=== PATIENT | female | born 1995 | race Caucasian/White ===

== ENCOUNTER 2022-08-25 13:30 | Inpatient (IN) | payer MEDICAID, SELFPAY ==
[2022-08-25 13:31] VITALS: BP 108/67; PULSE 97; RESP 16; TEMP 36.4; O2SAT 96; BMI 27.7
--- NOTE | 2022-08-25 14:00 | EX.ED.SAOD ---
HPI History of Present Illness Chief Complaint: Substance Abuse Informant: patient and family Onset/Context/Timing Onset: - (Substance abuse for years. Prior detox 1 to 2 years ago.) Context: Gradual Onset Timing: Continuous Current Severity: Mild Maximum Severity: Mild Narrative Narrative: 27-year-old female history of fentanyl, cocaine and Xanax abuse. Denies any IV drug abuse. She snorts the medication. Patient is here because in order to get an outpatient detox program she has to do an inpatient program first. Family is with her. She denies complaints. Last use within the last 12 hours. Prior similar symptoms: Yes Recent Illness/Hospitalization: No PFSH PFSH Allergy/AdvReac Type Severity Reaction Status Date / Time No Known Allergies Allergy Verified 08/25/22 13:31 Surgical History no surgical history no surgical history Social History Smoking Status: Current every day smoker tobacco type: cigarettes ROS ROS ED ROS Narrative Patient denies recent illness. Review of Systems ROS Unobtainable: Denies due to encephalopathy Constitutional Constitutional ED: Denies chills or fever(s) Eyes Eyes: Denies blurry vision ENT ENT ED: Denies ear pain Cardiovascular Cardiovascular: Denies chest pain Respiratory/Chest Respiratory/Chest: Denies cough or dyspnea Gastrointestinal Gastrointestinal: Denies abdominal pain Genitourinary Genitourinary ED: Denies dysuria Musculoskeletal Musculoskeletal: Denies arthralgias Integumentary Denies abscess Neurologic Neurologic: Denies headache(s) Psychiatric Psychiatric: Denies anxiety Endocrine Endocrinology: Denies cold intolerance Hematologic/Lymphatic Hematologic/Lymphatic: Denies easy bleeding Allergic/Immunologic Allergic/Immunologic ED: Denies mouth swelling EXAM Physical Exam Narrative Exam Narrative: 27-year-old female no acute distress. Tearful and emotionally upset. Family present in room. H EENT exam unremarkable. Neck nontender. No lymphadenopathy. Lungs clear to auscultation bilaterally. Heart regular rhythm rate about 95 no murmur. Chest wall nontender. Abdomen soft nontender. Back nontender. Moving all 4 extremities. Nontender, no edema, no cellulitis. No track jameson. Neurologically she is awake and alert with no focal motor deficits. Const Vital Signs: 08/25/22 13:31 Temperature 97.6 F L Temperature Source Temporal Pulse Rate 97 Respiratory Rate 16 Blood Pressure 108/67 Blood Pressure Mean 80 Pulse Ox 96 Oxygen Delivery Method Room Air Positive well nourished and well developed; Negative for cachectic, contractures or unkempt General Appearance ED: well developed and NAD; Negative for unkempt, cachectic, contractures or pallor Nutritional Appearance: Negative for cachectic HEENT Reports moist mucous membranes; Denies dry mucous membranes atraumatic; Negative for trauma or tenderness Mouth ED: No dry mucous membranes Mouth: No dry mucous membranes Eyes PERRL and EOMs intact bilaterally General Eye ED: Negative for pale conjunctiva or scleral icterus Neck no lymphadenopathy, supple and no JVD Thyroid: Negative for tender Lymph Lymphatic: no lymphadenopathy noted; Negative for lymphadenopathy Chest Wall inspection of chest normal and palpation of chest normal Resp normal respiratory effort and clear to auscultation bilaterally Effort and Inspection: Negative for retractions Auscultation: Negative for rales, rhonchi or wheezes Cardio regular rate, regular rhythm, S1 normal heart sound, S2 normal heart sound and no murmurs Rate: Negative for bradycardia Rhythm: Negative for abnormal rhythm Bruits: Negative for other GI soft to palpation, non-tender, non-distended and no masses Inspection: Negative for abdominal distention Palpation: Negative for tender, guarding or rigid Bladder / Kidney Exam: No other Back/Spine no CVA tenderness General Back: Negative for CVA tenderness Cervical Spine: Negative for cervical spine tenderness Thoracic Spine / Upper Back: Negative for thoracic spinal tenderness Lumbar Spine / Lower Back: Negative for lumbar spinal tenderness Coccyx: Negative for swelling Extremity General Extremety ED: Negative for edema or tenderness General Extremity: Negative for edema Neuro oriented x3 and CN's II-XII intact bilaterally Sensorium / Orientation: alert, oriented to person, oriented to place and oriented to time; Negative for confused, lethargic or stuporous Speech: speech normal Motor Exam: strength 5/5 throughout Psych mental status grossly normal and thought process normal Psych Narrative: Tearful and emotionally upset. Appearance: Negative for unkempt Attitude: No belligerent, No agitated, No aggressive and No hostile Mood & Affect: depressed and tearful Skin General Skin Exam: Negative for jaundice or pallor Lesions: no lesions Rashes: no rashes Trauma: Negative for abrasion or laceration MDM MDM MDM Narrative Medical decision making narrative: [id number] female detox for known fentanyl, cocaine and polysubstance abuse. Exam benign. Screening labs being placed. Hospitalist has been contacted and is down to evaluate the patient for admission. Lab Data Attestation: I reviewed the patient's lab results. Lab results narrative: CBC normal. White count 9. H&H 13.9 and 39. Platelets 228. Alcohol less than 3. Negative. Labs: Laboratory Results - last 24 hr 08/25/22 08/25/22 08/25/22 13:55 13:55 13:55 WBC 9.0 RBC 4.52 Hgb 13.9 Hct 39.9 MCV 88.3 MCH 30.8 MCHC 34.8 RDW Std Deviation 41.2 RDW Coeff of Mynor 12.7 Plt Count 228 MPV 11.2 Immature Gran % (Auto) 0.200 Neut % (Auto) 61.4 Lymph % (Auto) 27.5 [place] % (Auto) 6.5 Eos % (Auto) 4.1 Baso % (Auto) 0.3 Absolute Neuts (auto) 5.5 Absolute Lymphs (auto) 2.49 Nucleated RBC % 0 PT 13.1 INR 1.0 Ethyl Alcohol < 3.0 Discharge Plan Dx/Rx/DC Orders Clinical Impression: Polysubstance abuse, Desire for detoxification Disposition Disposition: Acute Care Hospital [facility]
[2022-08-25 14:02] LABS: Absolute Lymphocyte Count 2.49 X10^3/uL (0.83-4.51); Absolute Neutrophil Count 5.5 X10^3/uL (2.0-7.7); Basophil# 0.03 X10^3/uL; Basophil% 0.3 % (0-1); Eosinophil# 0.37 X10^3/uL; Eosinophils% 4.1 % (0-5); Hematocrit 39.9 % (37-47); Hemoglobin 13.9 g/dL (12.0-15.0); Lymphocyte # 2.49 X10^3/ul (0.83-4.51); Lymphocyte % 27.5 % (19-41); Mean Corp Hgb Conc 34.8 g/dL (32-36); Mean Corpuscular Hgb 30.8 pg (27.0-32.0); Mean Corpuscular Volume 88.3 fL (81-99); Mean Platelet Vol. 11.2 fl (6.2-12.0); Monocyte# 0.59 X10^3/uL; Monocyte% 6.5 % (0-10); NRBC Flagged by Analyzer 0 % (0-5); Neutrophil # 5.54 X10^3/uL (2.7-7.7); Neutrophil % 61.4 % (47-70); Platelet Count 228 K/mm3 (150-450); RBC Distribution Width CV 12.7 % (11.6-14.6); RBC Distribution Width SD 41.2 fl (35.1-43.9); Red Blood Count 4.52 M/mm3 (4.2-5.4)
[2022-08-25 14:14] LABS: Prothrombin Time (Protime)PT. 13.1 SECONDS (11.7-14.9)
[2022-08-25 14:18] LABS: Alcohol, Blood (Medical)-Serum < 3.0 mg/dL
[2022-08-25 14:21] VITALS: BP 128/73; PULSE 78; RESP 14; TEMP 36.6; O2SAT 100
--- NOTE | 2022-08-25 14:21 | CM.ED ---
Social Work SW introduced self and role to patient. Pt's mother and sister present at bedside. Pt presents as not wanting detox but then reported she needs to be here. SW provided support and encouragement to patient. SW called Ramp coordinator Norma to notify her of patient being admitted for detox. Doris Be [employer], AVIATION ENGINEER
[2022-08-25 14:23] LABS: ALB/GLOB Ratio 1.2 RATIO (0.9-2.4); AST(SGOT) 12 U/L (15-37); Alanine Aminotransfer ALT/SGPT 18 U/L (13-56); Albumin, Serum 3.9 g/dL (3.2-5.0); Alkaline Phosphatase 77 U/L (45-117); Anion Gap 5 (5-15); BUN 4 mg/dL (7-18); BUN/Creat Ratio 5.6 RATIO (10-20); Calcium,Total 9.4 mg/dL (8.5-10.1); Chloride 109 mmol/L (98-107); Creatinine, Serum 0.72 mg/dL (0.55-1.02); EST Glomerular Filtration Rate 105 mL/min (>60); Est Glom Filt Rate - Afr Amer 126 mL/min (>60); Estimated Creatinine Clearance 110.84 ml/min; Globulin 3.3 g/dL (2.2-4.2); Glucose 94 mg/dL (74-106); Potassium 3.8 mmol/L (3.5-5.1); Protein, Total 7.2 g/dL (6.4-8.2); Sodium Level 142 mmol/L (136-145)
--- NOTE | 2022-08-25 15:00 | PCM.HP.STD ---
[facility] - General General Date of Admission: 08/25/22 Date of Service: 08/25/22 Chief Complaint: Acute opioid withdrawal symptoms for 1 to 2 days. HPI Narrative BERYL PETTY, is a 27 F with history of chronic opioid use mainly fentanyl came to ED for medical stabilization. She states he has been using fentanyl by snorting, denies IV use and had a few relapses in the past. She does not know exact quantity but he states she gets fentanyl worth of $20-$40 and uses for few days and then off for 1 or 2 days. Her last dose was about 2 days ago and she was having withdrawal symptoms therefore she got Ativan half milligram and Xanax 1 mg from her friend and she took in the morning. She denies chronic benzodiazepine use and dependence. She denies crack cocaine, methamphetamine, ecstasy, bath salts or other substance use. She denies drinking alcohol. She has history of 2-3 relapses in the past. Currently she has symptoms of anxiety, restlessness, itching but denies diarrhea, palpitation, muscle aches pain. Past medical history: Denies hypertension diabetes. She is not . Social history: Patient is smokes cigarette about pack per day. Opioid use and dependence. Rest as mentioned above Family history: Her mother accompanied the patient. She does not have substance use history. PFSH Allergy/AdvReac Type Severity Reaction Status Date / Time No Known Allergies Allergy Verified 08/25/22 13:31 Surgical History no surgical history Social History Smoking Status: Current every day smoker tobacco type: cigarettes ROS ROS Narrative Constitutional: Reports fatigue and weakness. No fever. HEENT: Reports systems reviewed and no addt'l complaints, except as documented Respiratory/Chest: No acute shortness of breath or respiratory distress or wheezing. CVS: Denies cardiac history or arrhythmia. Gastrointestinal: Denies coffee ground emesis, hematemesis or vomiting Genitourinary: Denies burning urination or new urinary tract symptoms Musculoskeletal: Denies acute joint pain or limited range of motion. No acute injury Neurologic: Denies seizure-like symptoms. No acute strokelike symptoms. Psychiatry: No hallucination delusion or illusion. No nightmares. skin: No ulcer. No rash Endocrinology: Reports systems reviewed and no addt'l complaints, except as documented Hematologic/Lymphatic: Reports systems reviewed and no addt'l complaints, except as documented Rest 14 ROS are negative except as mentioned in HPI Vital Signs Vital Signs Vital Signs: 08/25/22 13:31 08/25/22 14:21 Temperature 97.6 F L 97.8 F Temperature Source Temporal Temporal Pulse Rate 97 78 Respiratory Rate 16 14 Blood Pressure 108/67 128/73 H Blood Pressure Mean 80 91 Pulse Ox 96 100 Oxygen Delivery Method Room Air Room Air Weight Weight: 172 lb Body Mass Index (BMI) 27.7 Physical Exam Narrative General: Alert, Oriented x3, Cooperative HEENT: Atraumatic, PERRLA, EOMI, Normocephalic Oral: Oral mucosa dry. No Gingival or Mucosal Lesions/ Ulcerations/inflammation or redness Neck: Supple, No JVD, Negative Carotid Bruits Lungs: Air entry diminished in bilateral lung bases. No crepitation/rhonchi Cardiovascular: Regular rate, Regular Rhythm, Normal S1, Normal S2, No murmurs Abdomen: Bowel Sounds Present, Soft, Non Tender, Non-Distended : No renal angle tenderness. No suprapubic tenderness. Extremities: No edema, Capillary Refill Less than 3 Seconds Skin: No rashes, No breakdown Musculoskeletal: No Tenderness to Palpation of Joints or Extremities. Muscle strength 5/5 at major joints. ROM intact. Neurological: Cranial nerves II-XII grossly intact, DTR 2+/4 and Symmetrical, Neuro grossly intact Psych/Mental Status: Flat affect. Anxious, restless. Results Lab / Micro Data Result Diagrams: 08/25/22 13:55 08/25/22 13:55 Labs: Laboratory Results - last 24 hr 08/25/22 13:55: WBC 9.0, RBC 4.52, Hgb 13.9, Hct 39.9, MCV 88.3, MCH 30.8, MCHC 34.8, RDW Std Deviation 41.2, RDW Coeff of Mynor 12.7, Plt Count 228, MPV 11.2, Immature Gran % (Auto) 0.200, Neut % (Auto) 61.4, Lymph % (Auto) 27.5, [place] % (Auto) 6.5, Eos % (Auto) 4.1, Baso % (Auto) 0.3, Absolute Neuts (auto) 5.5, Absolute Lymphs (auto) 2.49, Nucleated RBC % 0 08/25/22 13:55: Sodium 142, Potassium 3.8, Chloride 109 H, Carbon Dioxide 28.0, Anion Gap 5, BUN 4 L, Creatinine 0.72, Estim Creat Clear Calc 110.84, Est GFR (MDRD) Af Amer 126, Est GFR (MDRD) Non-Af 105, BUN/Creatinine Ratio 5.6 L, Glucose 94, Calcium 9.4, Total Bilirubin 1.00, AST 12 L, ALT 18, Alkaline Phosphatase 77, Total Protein 7.2, Albumin 3.9, Globulin 3.3, Albumin/Globulin Ratio 1.2 08/25/22 13:55: Ethyl Alcohol < 3.0 08/25/22 13:55: PT 13.1, INR 1.0 Assessment & Plan Assessment/Plan (1) Acute opioid withdrawal: PLAN: Plan 1. Acute opioid withdrawal syndrome with history of opioid use disorder, dependence and multiple relapses: [facility] The patient is started on buprenorphine along with other adjunctive medications as needed for medical stabilization as per order set of opioid withdrawal syndrome.Patient also on trazodone, hydroxyzine, gabapentin as needed ordered. watershed program manager consult. Patient denies IV use. Advised quitting opioid use. 2. Intermittent use of benzodiazepines: Patient denies chronic use and dependence: She had 1 dose of half milligram Ativan and 1 mg Xanax today. 3. Chronic smoking/nicotine dependence: Nicotine patch ordered. Advised and counseling done to quit. 4. VTE prophylaxis, low risk: Early ambulation encouraged. No pharmacological prophylaxis is recommended. Living will/advanced directive/end of life care: Patient does not have living will or advanced directive. After discussion of benefits/risks procedures involved with full code, DNR CC arrest and DNR CC, the patient and the family opted for full code. Patient does want artificial life support including intubation, tube feed, ventilator and/chest compression, central venous catheter, vasopressor and DC shock if needed Charges/Coding Visit Charges Inpatient E&M: 07060 Init Hosp L3
[2022-08-25 15:21] VITALS: BMI 27.3
[2022-08-25 15:45] VITALS: BP 125/66; PULSE 88; RESP 14; TEMP 36.6; O2SAT 95
[2022-08-25] MEDS: Lactated Ringers 1,000 ML 125 ML IV (16:21)
[2022-08-25] MEDS: 0.9% Saline Lock 10 ML Syringe IV (16:23)
[2022-08-25 16:24] LABS: Internal QC Validated? YES +Cl - CLEAR BKGD; Pregnancy, Serum, hCG Quali. NEGATIVE Negative
[2022-08-25] MEDS: Pantoprazole Sodium 40 MG Tablet PO (16:25)
[2022-08-25] MEDS: hydrOXYzine PAM 25 MG Capsule 50 MG PO (16:55)
[2022-08-25 18:11] LABS: Amphetamine Urine VISTA NEGATIVE (<1000 ng/mL); Barbiturate Urine VISTA NEGATIVE (< 200 ng/mL); Benzodiazepine Urine VISTA POSITIVE (< 200 ng/mL); Cocaine Urine VISTA NEGATIVE (< 300 ng/mL); Ecstacy Urine VISTA NEGATIVE (< 500 ng/mL); Methadone Urine VISTA NEGATIVE (< 300 ng/mL); PCP Urine VISTA NEGATIVE (< 25 ng/mL); THC Urine VISTA POSITIVE (< 50 ng/mL); Vista UDS pH Range 6
[2022-08-25 21:14] VITALS: BP 109/66; PULSE 60; RESP 18; TEMP 36.3; O2SAT 100
[2022-08-25 21:16] VITALS: RESP 18
[2022-08-26 01:51] VITALS: BP 107/51; PULSE 89; RESP 18; TEMP 36.6; O2SAT 97
[2022-08-26] MEDS: hydrOXYzine PAM 25 MG Capsule 50 MG PO ×3 (02:05→23:51)
[2022-08-26] MEDS: traZODone 100 MG Tablet PO ×2 (02:06→23:51)
[2022-08-26] MEDS: cloNIDine HCl 0.1 MG Tablet PO (02:06)
[2022-08-26 05:58] VITALS: BP 101/54; PULSE 54; RESP 18; TEMP 36.3; O2SAT 97
[2022-08-26 08:08] VITALS: PULSE 80
[2022-08-26 08:12] VITALS: BP 109/69; PULSE 75; RESP 16; TEMP 36.8; O2SAT 98
[2022-08-26] MEDS: Pantoprazole Sodium 40 MG Tablet PO (08:18)
[2022-08-26 11:17] VITALS: BP 120/57; PULSE 72; RESP 16; TEMP 37.1; O2SAT 96
--- NOTE | 2022-08-26 13:30 | CHAPLAIN ---
Type of Pastoral Visit ___ Initial Visit ___ Follow-up Visit ___ On-call Visit ___ General Patient Visit ___ Spiritual Assessment ___ Family Conference ___ Bereavement ___ Rapid Response ___ Code Blue ___ Other (describe below) Pastoral Care Referral From ___ Patient ___ Family ___ Nurse ___ Physician ___ Publishing Manager ___ Tumbler Tender ___ Other (describe below) Sacrament/Intervention ___ Active listening ___ Anointing ___ Cheondoism ___ Bereavement ___ Communion ___ Sia exploration ___ ___ Life review ___ Prayer ___ Reconciliation ___ Sacrament of Sick ___ Supportive presence ___ Wedding ___ Other (describe below) Pastoral Comments patient was sleeping
--- NOTE | 2022-08-26 13:44 | PN.HOSP_ITS ---
Reason for Visit Reason for Visit: Diagnoses Opioid use, unspecified with withdrawal (08/25/22) Subjective Subjective Resting in bed, reports she is mostly feeling sleepy, not particularly shaky, slightly nauseous was able to eat some food Objective Data Objective Data Vital Signs: Vital Signs Temp Pulse Resp BP Pulse Ox O2 Del Method 98.8 F 72 16 120/57 L 96 Room Air 08/26/22 11:17 08/26/22 11:17 08/26/22 11:17 08/26/22 11:17 08/26/22 11:17 08/26/22 11:17 Oxygen Delivery Method Room Air Weight: 78.154 kg Body Mass Index (BMI) 27.3 Intake & Output: Intake and Output for Last 24 Hours 08/24/22 08/25/22 08/26/22 23:59 23:59 23:59 Intake Total 600 / 600 2100 / 2100 Balance 600 / 600 2100 / 2100 Lab / Micro Data Result Diagrams: 08/25/22 13:55 08/25/22 13:55 Labs: Laboratory Results - last 24 hr 08/25/22 13:55: WBC 9.0, RBC 4.52, Hgb 13.9, Hct 39.9, MCV 88.3, MCH 30.8, MCHC 34.8, RDW Std Deviation 41.2, RDW Coeff of Mynor 12.7, Plt Count 228, MPV 11.2, Immature Gran % (Auto) 0.200, Neut % (Auto) 61.4, Lymph % (Auto) 27.5, [place] % (Auto) 6.5, Eos % (Auto) 4.1, Baso % (Auto) 0.3, Absolute Neuts (auto) 5.5, Absolute Lymphs (auto) 2.49, Nucleated RBC % 0 08/25/22 13:55: Sodium 142, Potassium 3.8, Chloride 109 H, Carbon Dioxide 28.0, Anion Gap 5, BUN 4 L, Creatinine 0.72, Estim Creat Clear Calc 110.84, Est GFR (MDRD) Af Amer 126, Est GFR (MDRD) Non-Af 105, BUN/Creatinine Ratio 5.6 L, Glucose 94, Calcium 9.4, Total Bilirubin 1.00, AST 12 L, ALT 18, Alkaline Phosphatase 77, Total Protein 7.2, Albumin 3.9, Globulin 3.3, Albumin/Globulin Ratio 1.2 08/25/22 13:55: Ethyl Alcohol < 3.0 08/25/22 13:55: PT 13.1, INR 1.0 08/25/22 13:55: Serum , Qual NEGATIVE 08/25/22 17:10: Urine Opiates Screen NEGATIVE, Urine Methadone Screen NEGATIVE, Ur Barbiturates Screen NEGATIVE, Ur Phencyclidine Scrn NEGATIVE, Ur Amphetamines Screen NEGATIVE, MDMA (Ecstasy) Screen NEGATIVE, U Benzodiazepines Scrn POSITIVE H, Urine Cocaine Screen NEGATIVE, U Cannabinoids Screen POSITIVE H, Ur Drug Screen Comment Physical Exam Narrative General: Alert, oriented, no apparent distress HEENT: Atraumatic, normocephalic Eyes: Anicteric, normal conjunctiva, extraocular movements grossly intact Neck: Supple Respiratory: Clear to auscultation bilaterally, normal respiratory effort Cardiovascular: Regular rate and rhythm GI: Soft, nontender, nondistended Extremities: No edema Musculoskeletal: Moving all extremities Neuro: No overt focal neurological deficits Skin: No rashes appreciated Psych: Cooperative Assessment & Plan Assessment/Plan (1) Acute opioid withdrawal: PLAN: Plan 1. Acute opioid withdrawal syndrome with history of opioid use disorder, dependence and multiple relapses: [facility] The patient is started on buprenorphine along with other adjunctive medications as needed for medical stabilization as per order set of opioid withdrawal syndrome.Patient also on trazodone, hydroxyzine, gabapentin as needed ordered. rollout manager consult. Patient denies IV use. Advised quitting opioid use. -08/26: Continue present measures 2. Intermittent use of benzodiazepines: Patient denies chronic use and dependence: She had 1 dose of half milligram Ativan and 1 mg Xanax today. -08/26: Do not feel she needs benzo detox at this time 3. Chronic smoking/nicotine dependence: Nicotine patch ordered. Advised and counseling done to quit. 4. VTE prophylaxis, low risk: Early ambulation encouraged. No pharmacological prophylaxis is recommended. Charges/Coding Visit Charges Inpatient E&M: 12773 Subs Hosp L2
[2022-08-26] MEDS: Ondansetron 8 MG Tablet PO (15:28)
[2022-08-26 23:40] VITALS: BP 107/60; PULSE 71; RESP 16; TEMP 36.6; O2SAT 97
[2022-08-26] MEDS: Mag Hydrox/Al Hydrox/Simeth 30 ML UDC PO (23:51)
[2022-08-26] MEDS: Dicyclomine 10 MG Capsule 20 MG PO (23:51)
[2022-08-27] MEDS: Buprenorphine HCl 2 MG TAB.SUBL SL ×3 (00:08→15:59)
[2022-08-27 05:00] VITALS: BP 110/68; PULSE 76; RESP 16; TEMP 36.6; O2SAT 96
[2022-08-27] MEDS: Pantoprazole Sodium 40 MG Tablet PO (08:01)
[2022-08-27] MEDS: Dicyclomine 10 MG Capsule 20 MG PO (08:01)
[2022-08-27 10:09] VITALS: BP 102/55; PULSE 60; RESP 16; TEMP 36.7; O2SAT 95
[2022-08-27] MEDS: Ibuprofen 600 MG Tablet PO (10:15)
[2022-08-27] MEDS: Methocarbamol 750 MG Tablet 1500 MG PO (10:15)
--- NOTE | 2022-08-27 11:51 | ADDICTION ---
This telegraphic typewriter operator met with PT to conduct ASAM, MSE, AUDIT, DUDIT assessments and to plan for d/c. PT A+Ox4 and participated actively. All assessments completed and placed in PT's chart. PT plans to f/u with [facility] in [place] for outpatient treatment services on Tuesday morning. Pt does not report a need for transportation.
--- NOTE | 2022-08-27 14:40 | CHAPLAIN ---
Type of Pastoral Visit _x__ Initial Visit ___ Follow-up Visit ___ On-call Visit ___ General Patient Visit ___ Spiritual Assessment ___ Family Conference ___ Bereavement ___ Rapid Response ___ Code Blue ___ Other (describe below) Pastoral Care Referral From _x__ Patient ___ Family ___ Nurse ___ Physician ___ Heavy Repairer ___ Operations Coordinator ___ Other (describe below) Sacrament/Intervention _x__ Active listening ___ Anointing ___ Samaritan ___ Bereavement ___ Communion _x__ Sia exploration ___ _x__ Life review _x__ Prayer ___ Reconciliation ___ Sacrament of Sick _x__ Supportive presence ___ Wedding ___ Other (describe below) Pastoral Comments patient is welcoming and has plans for herself to overcome drug use and addiction; talked of support and where pt finds help; pt plans to look to God and renew her walk with God as main source; pt has some family support; pt has broken off marriage relationship as spouse is a user of drugs; pt welcomes presence and prayer for support
[2022-08-27 14:45] VITALS: BP 104/64; PULSE 95; RESP 16; TEMP 37.1; O2SAT 99
--- NOTE | 2022-08-27 15:23 | PCM.PN.HOSP ---
Reason for Visit Reason for Visit: Diagnoses Opioid use, unspecified with withdrawal (08/25/22) Subjective Subjective Laying in bed in no acute distress, feels a little bit achy and unwell but no other complaints voiced Objective Data Objective Data Vital Signs: Vital Signs Temp Pulse Resp BP Pulse Ox O2 Del Method 98.8 F 95 16 104/64 99 Room Air 08/27/22 14:45 08/27/22 14:45 08/27/22 14:45 08/27/22 14:45 08/27/22 14:45 08/27/22 10:09 Oxygen Delivery Method Room Air Weight: 78.154 kg Body Mass Index (BMI) 27.3 Intake & Output: Intake and Output for Last 24 Hours 08/25/22 08/26/22 08/27/22 23:59 23:59 23:59 Intake Total 600 / 600 2100 / 2100 Balance 600 / 600 2100 / 2100 Lab / Micro Data Result Diagrams: 08/25/22 13:55 08/25/22 13:55 Physical Exam Narrative General: Alert, oriented, no apparent distress HEENT: Atraumatic, normocephalic Eyes: extraocular movements grossly intact Neck: Supple Respiratory: normal respiratory effort Cardiovascular: no edema appreciated GI: nondistended Extremities: Moving all extremities Neuro: No overt focal neurological deficits Psych: Cooperative Assessment & Plan Assessment/Plan (1) Acute opioid withdrawal: PLAN: Plan 1. Acute opioid withdrawal syndrome with history of opioid use disorder, dependence and multiple relapses: Patient is being admitted on the [facility] floor. The patient is started on buprenorphine along with other adjunctive medications as needed for medical stabilization as per order set of opioid withdrawal syndrome.Patient also on trazodone, hydroxyzine, gabapentin as needed ordered. customer technical services manager consult. Patient denies IV use. Advised quitting opioid use. -08/26: Continue present measures -08/27: We will follow with [facility] in [place] for outpatient treatment services on Tuesday morning 2. Intermittent use of benzodiazepines: Patient denies chronic use and dependence: She had 1 dose of half milligram Ativan and 1 mg Xanax today. -08/26: Do not feel she needs benzo detox at this time 3. Chronic smoking/nicotine dependence: Nicotine patch ordered. Advised and counseling done to quit. 4. VTE prophylaxis, low risk: Early ambulation encouraged. No pharmacological prophylaxis is recommended. Charges/Coding Visit Charges Inpatient E&M: 55679 Subs Hosp L2
[2022-08-27] MEDS: hydrOXYzine PAM 25 MG Capsule 50 MG PO (18:56)
[2022-08-27 20:04] VITALS: BP 109/62; PULSE 75; RESP 18; TEMP 36.8; O2SAT 100
[2022-08-28] MEDS: Buprenorphine HCl 2 MG TAB.SUBL SL ×3 (00:38→15:42)
[2022-08-28 02:00] VITALS: BP 112/57; PULSE 62; RESP 14; TEMP 36.7; O2SAT 99
[2022-08-28 07:48] VITALS: BP 110/66; PULSE 69; RESP 16; TEMP 36.7; O2SAT 100
[2022-08-28] MEDS: Pantoprazole Sodium 40 MG Tablet PO (08:01)
[2022-08-28] MEDS: hydrOXYzine PAM 25 MG Capsule 50 MG PO ×2 (08:01→15:51)
[2022-08-28] MEDS: Gabapentin 300 MG Capsule PO (12:19)
--- NOTE | 2022-08-28 15:04 | PN.HOSP_ITS ---
Reason for Visit Reason for Visit: Diagnoses Opioid use, unspecified with withdrawal (08/25/22) Subjective Subjective Feels close to being ready to go home, no acute complaints Objective Data Objective Data Vital Signs: Vital Signs Temp Pulse Resp BP Pulse Ox O2 Del Method 98.0 F 69 16 110/66 100 Room Air 08/28/22 07:48 08/28/22 07:48 08/28/22 07:48 08/28/22 07:48 08/28/22 07:48 08/28/22 07:48 Oxygen Delivery Method Room Air Weight: 78.154 kg Body Mass Index (BMI) 27.3 Intake & Output: Intake and Output for Last 24 Hours 08/26/22 08/27/22 08/28/22 23:59 23:59 23:59 Intake Total 2099 / 2099 850 / 850 Balance 2099 850 / 850 Lab / Micro Data Result Diagrams: 08/25/22 13:55 08/25/22 13:55 Physical Exam Narrative General: Alert, oriented, no apparent distress HEENT: Atraumatic, normocephalic Eyes: extraocular movements grossly intact Neck: Supple Respiratory: normal respiratory effort Cardiovascular: no edema appreciated GI: nondistended Extremities: Moving all extremities Neuro: No overt focal neurological deficits Psych: Cooperative Assessment & Plan Assessment/Plan (1) Acute opioid withdrawal: PLAN: Plan 1. Acute opioid withdrawal syndrome with history of opioid use disorder, dependence and multiple relapses: Patient is being admitted on the [facility] floor. The patient is started on buprenorphine along with other adjunctive medications as needed for medical stabilization as per order set of opioid withdrawal syndrome.Patient also on trazodone, hydroxyzine, gabapentin as needed ordered. manufacturing project manager consult. Patient denies IV use. Advised quitting opioid use. -08/26: Continue present measures -08/27: We will follow with [facility] in [place] for outpatient treatment services on Tuesday morning -08/28: Likely DC home tomorrow afternoon 2. Intermittent use of benzodiazepines: Patient denies chronic use and dep endence: She had 1 dose of half milligram Ativan and 1 mg Xanax today. -08/26: Do not feel she needs benzo detox at this time 3. Chronic smoking/nicotine dependence: Nicotine patch ordered. Advised and counseling done to quit. 4. VTE prophylaxis, low risk: Early ambulation encouraged. No pharmacological prophylaxis is recommended. Charges/Coding Visit Charges Inpatient E&M: 31748 Subs Hosp L2
[2022-08-28 15:38] VITALS: BP 110/69; PULSE 89; RESP 16; TEMP 36.7; O2SAT 98
[2022-08-28 20:41] VITALS: BP 121/62; PULSE 70; RESP 18; TEMP 36.8; O2SAT 98
[2022-08-29] MEDS: Buprenorphine HCl 2 MG TAB.SUBL SL ×2 (00:08→11:29)
[2022-08-29 02:00] VITALS: BP 127/76; PULSE 65; RESP 16; TEMP 37; O2SAT 100
--- NOTE | 2022-08-29 07:47 | PCM.DC ---
Discharge Instructions Diet Discharge Diet: No restrictions Activity Discharge Activity: Return to Normal Activity Follow Up Care Test Results: Test results from this visit will be discussed in further detail at your follow-up appointment, if applicable. Discharge Plan Admission Admit Date/Time: 08/25/22 13:50 Primary Reason for Your Visit: Opioid detox Attending Provider: Syeda Dia Primary Care Provider: Care Physician,No Primary Consulting Providers: Lenny Hope Instructions Additional Instructions / Restrictions: DISCHARGE INSTRUCTIONS PLEASE READ *Please take this with you to your next doctors appointment* -Please follow-up with [facility] in [place] for outpatient treatment services, you are scheduled to follow-up Tuesday morning - It is strongly advised that you refrain from any substance use. Please call [facility] located at [address] [place] [phone] (ph [phone]) if you are interested in further resources -Please call your primary care provider's office upon discharge to schedule a hospital follow up within 1 week. -If you do not have a primary care physician of list of local primary care physicians can be provided for you upon discharge. Please ask for this list prior to discharge -For any concerning signs or symptoms please call 911 or proceed to the nearest emergency department Discharge Orders/Prescriptions Referrals / Follow Up: Care Physician,No Primary [Primary Care Provider] - See Referral Note ( -If you do not have a primary care physician of list of local primary care physicians can be provided for you upon discharge. Please ask for this list prior to discharge) Disposition Disposition (needs filled in before D/C Order can be placed): Home, Self Care
--- NOTE | 2022-08-29 07:49 | DS.PCM_ITS ---
Providers Date of Admission: 08/25/22 Date of Discharge: 08/29/22 Primary Care Physician: Shannon Primary Care Phys Reason For Visit: ACUTE OPIOD USE WITHRAWAL SNYDROME Diagnosis Discharge Diagnosis (1) Acute opioid withdrawal: Status: Acute Code(s): F11.93 - Opioid use, unspecified with withdrawal Plan 1. Acute opioid withdrawal syndrome with history of opioid use disorder, dependence and multiple relapses: 2. Intermittent use of benzodiazepines: 3. Chronic smoking/nicotine dependence: Hospital Course Summary of Care Provided Minutes Spent on Discharge: 21 Hospital Course: Patient was admitted 08/25/2022 requesting detox from opioids. Patient was admitted and detox protocol ordered. They completed their detox and were discharged in stable condition. On the day of discharge no new medical complaints voiced. Physical Exam Narrative General: Alert, oriented, no apparent distress HEENT: Atraumatic, normocephalic Eyes: extraocular movements grossly intact Neck: Supple Respiratory: normal respiratory effort Cardiovascular: no edema appreciated GI: nondistended Extremities: Moving all extremities Neuro: No overt focal neurological deficits Psych: Cooperative Weight / BMI Weight Weight: 78.154 kg Body Mass Index (BMI) 27.3 ABG / Lab / Microbiology Data Result Diagrams: 08/25/22 13:55 08/25/22 13:55 D/C Instructions Discharge Diet: No restrictions Meaningful Use Info Meaningful Use Diagnoses (Choose all that apply): None applicable Discharge Plan Admission Admit Date/Time: 08/25/22 13:50 Primary Reason for Your Visit: Opioid detox Attending Provider: Syeda Dia Primary Care Provider: Care Physician,No Primary Consulting Providers: Lenny Hope Instructions Patient Instructions: ED Opiate Abuse Additional Instructions / Restrictions: DISCHARGE INSTRUCTIONS PLEASE READ *Please take this with you to your next doctors appointment* -Please follow-up with [facility] in [place] for outpatient treatment services, you are scheduled to follow-up Tuesday morning - It is strongly advised that you refrain from any substance use. Please call [facility] located at [address] [place] [phone] (ph [phone]) if you are interested in further resources -Please call your primary care provider's office upon discharge to schedule a hospital follow up within 1 week. -If you do not have a primary care physician of list of local primary care physicians can be provided for you upon discharge. Please ask for this list prior to discharge -For any concerning signs or symptoms please call 911 or proceed to the nearest emergency department Discharge Orders/Prescriptions Referrals / Follow Up: Care Physician,No Primary [Primary Care Provider] - See Referral Note ( -If you do not have a primary care physician of list of local primary care physi cians can be provided for you upon discharge. Please ask for this list prior to discharge) Disposition Disposition (needs filled in before D/C Order can be placed): Home, Self Care Charges/Coding Visit Charges Inpatient E&M: 76442 Disch Hosp
[2022-08-29 09:07] VITALS: BP 112/77; PULSE 90; RESP 16; TEMP 36.7; O2SAT 99
[2022-08-29] MEDS: Pantoprazole Sodium 40 MG Tablet PO (09:15)
[2022-08-29] MEDS: hydrOXYzine PAM 25 MG Capsule 50 MG PO (09:19)
== END 2022-08-29 12:35 | disposition home or self-care (01) | DRG 773 ==
LOC: ED 14:05 → MS3 14:53
PROVIDERS: Admitting Provider Internal Medicine; Emergency Provider Emergency Medicine; Visit Provider Internal Medicine
DX: F11.23 Opioid dependence with withdrawal (principal); F17.210 Nicotine dependence, cigarettes, uncomplicated
CPT/HCPCS: 36415; 80053; 80307; 82077; 84703; 85025; 85610; 99283; J7120; A4216

== ENCOUNTER 2022-09-05 16:02 | Observation (INO) | payer MEDICAID, SELFPAY ==
[2022-09-05 16:03] VITALS: BP 97/77; PULSE 94; RESP 18; TEMP 35.7; O2SAT 97; BMI 26.6
--- NOTE | 2022-09-05 16:42 | EDS_ITS ---
HPI History of Present Illness Chief Complaint: Overdose Narrative Narrative: 27-year-old female presenting after overdose. She states she was snorting fentanyl. She states she received Narcan and she is now awake. She does not have any complaints except she is tearful and feels like she needs detox again. She is trying to get a hold of her mother to make this decision. She believes her mother has her phone. Patient has a history of substance abuse as well as overdose. She recently detoxed at [facility]. [facility] Medical History Drug abuse, opioid type Allergy/AdvReac Type Severity Reaction Status Date / Time No Known Allergies Allergy Verified 09/05/22 16:06 Social History Smoking Status: Current every day smoker tobacco type: cigarettes ROS ROS ED Constitutional Constitutional ED: Denies chills, fever(s) or sweats Eyes Eyes: Denies blurry vision or change in vision ENT ENT ED: Denies ear pain or sore throat Cardiovascular Cardiovascular: Denies chest pain, palpitations or racing heartbeat Respiratory/Chest Respiratory/Chest: Denies cough, dyspnea or sputum Gastrointestinal Gastrointestinal: Denies abdominal pain, constipation, diarrhea, nausea or vomiting Genitourinary Genitourinary ED: Denies dysuria, hematuria or urinary frequency Musculoskeletal Musculoskeletal: Denies arthralgias, myalgias or neck pain Integumentary Denies abscess, Abrasions or rash Neurologic Neurologic: Denies headache(s), paresthesias or weakness Psychiatric Psychiatric: Denies anxiety, depression, suicidal ideation or suicidal thoughts Endocrine Endocrinology: Denies polydipsia or polyuria EXAM Physical Exam Const Vital Signs: 09/05/22 16:03 09/05/22 18:38 Temperature 96.3 F L Temperature Source Temporal Pulse Rate 94 51 L Respiratory Rate 18 14 Blood Pressure 97/77 116/63 Blood Pressure Mean 83 80 Pulse Ox 97 96 Oxygen Delivery Method Room Air Room Air Positive well nourished General Appearance ED: Negative for pallor HEENT Reports moist mucous membranes atraumatic Eyes PERRL and EOMs intact bilaterally Lymph Lymphatic: no lymphadenopathy noted Resp normal respiratory effort and clear to auscultation bilaterally Cardio regular rate and regular rhythm Neuro oriented x3 and CN's II-XII intact bilaterally [place] Coma Scale: document GCS findings Spontaneous Extensor Response Oriented 11 Sensorium / Orientation: alert Motor Exam: strength 5/5 throughout Psych mental status grossly normal Mood & Affect: tearful Skin General Skin Exam: Negative for jaundice or pallor MDM MDM MDM Narrative Medical decision making narrative: Patient presenting after overdose. She wants to talk to her mother before she makes a decision to detox. He is alert and awake in no acute distress. Patient has time to speak with her mother. Her mother is now at the bedside. She states that she is willing to do detox at this point. Screening labs will be obtained. CBC shows slight leukocytosis at 14.9. This is likely reactive due to her overdose today. Hemoglobin chronic are stable. Platelets are normal. Renal function electrolytes within normal limits. EtOH level negative. hCG negative. Drug screen is pending. Discussed with hospitalist for admission for detox. Patient admitted in stable condition. Impression: 1. Opioid overdose 2. Presentation for opioid detox Lab Data Labs: Laboratory Results - last 24 hr 09/05/22 09/05/22 09/05/22 18:15 18:15 18:15 WBC 14.9 H RBC 4.64 Hgb 13.9 Hct 40.7 MCV 87.7 MCH 30.0 MCHC 34.2 RDW Std Deviation 39.8 RDW Coeff of Mynor 12.4 Plt Count 292 MPV 11.2 Immature Gran % (Auto) 0.400 Neut % (Auto) 83.1 H Lymph % (Auto) 11.6 L [place] % (Auto) 4.6 Eos % (Auto) 0.1 Baso % (Auto) 0.2 Absolute Neuts (auto) 12.4 H Absolute Lymphs (auto) 1.73 Nucleated RBC % 0 Sodium 142 Potassium 4.0 Chloride 111 H Carbon Dioxide 25.0 Anion Gap 6 BUN 9 Creatinine 0.92 Estim Creat Clear Calc 86.75 Est GFR (MDRD) Af Amer 95 Est GFR (MDRD) Non-Af 79 BUN/Creatinine Ratio 9.8 L Glucose 109 H Calcium 9.5 Serum , Qual Ethyl Alcohol < 3.0 09/05/22 18:15 WBC RBC Hgb Hct MCV MCH MCHC RDW Std Deviation RDW Coeff of Mynor Plt Count MPV Immature Gran % (Auto) Neut % (Auto) Lymph % (Auto) [place] % (Auto) Eos % (Auto) Baso % (Auto) Absolute Neuts (auto) Absolute Lymphs (auto) Nucleated RBC % Sodium Potassium Chloride Carbon Dioxide Anion Gap BUN Creatinine Estim Creat Clear Calc Est GFR (MDRD) Af Amer Est GFR (MDRD) Non-Af BUN/Creatinine Ratio Glucose Calcium Serum , Qual NEGATIVE Ethyl Alcohol Discharge Plan Triage Chief Complaint: Overdose ED Provider: Enrique Bryan Dx/Rx/DC Orders Primary Care Provider: Care Physician,No Primary Referrals: Care Physician,No Primary [Primary Care Provider] -
[2022-09-05 18:23] LABS: Absolute Lymphocyte Count 1.73 X10^3/uL (0.83-4.51); Absolute Neutrophil Count 12.4 X10^3/uL (2.0-7.7); Basophil# 0.03 X10^3/uL; Basophil% 0.2 % (0-1); Eosinophil# 0.01 X10^3/uL; Eosinophils% 0.1 % (0-5); Hematocrit 40.7 % (37-47); Hemoglobin 13.9 g/dL (12.0-15.0); Lymphocyte # 1.73 X10^3/ul (0.83-4.51); Lymphocyte % 11.6 % (19-41); Mean Corp Hgb Conc 34.2 g/dL (32-36); Mean Corpuscular Volume 87.7 fL (81-99); Mean Platelet Vol. 11.2 fl (6.2-12.0); Monocyte# 0.68 X10^3/uL; Monocyte% 4.6 % (0-10); NRBC Flagged by Analyzer 0 % (0-5); Neutrophil # 12.38 X10^3/uL (2.7-7.7); Neutrophil % 83.1 % (47-70); Platelet Count 292 K/mm3 (150-450); RBC Distribution Width CV 12.4 % (11.6-14.6); RBC Distribution Width SD 39.8 fl (35.1-43.9); Red Blood Count 4.64 M/mm3 (4.2-5.4); White Blood Count 14.9 K/mm3 (4.4-11.0)
[2022-09-05 18:28] LABS: Internal QC Validated? YES +Cl - CLEAR BKGD; Pregnancy, Serum, hCG Quali. NEGATIVE Negative
[2022-09-05 18:36] LABS: Alcohol, Blood (Medical)-Serum < 3.0 mg/dL
[2022-09-05 18:37] LABS: Anion Gap 6 (5-15); BUN 9 mg/dL (7-18); BUN/Creat Ratio 9.8 RATIO (10-20); Calcium,Total 9.5 mg/dL (8.5-10.1); Chloride 111 mmol/L (98-107); Creatinine, Serum 0.92 mg/dL (0.55-1.02); EST Glomerular Filtration Rate 79 mL/min (>60); Est Glom Filt Rate - Afr Amer 95 mL/min (>60); Estimated Creatinine Clearance 86.75 ml/min; Glucose 109 mg/dL (74-106); Sodium Level 142 mmol/L (136-145)
[2022-09-05 18:38] VITALS: BP 116/63; PULSE 51; RESP 14; O2SAT 96
[2022-09-05 19:34] VITALS: BP 103/60; PULSE 80; RESP 16; TEMP 36.7; O2SAT 98
--- NOTE | 2022-09-05 19:34 | HP.PCM.HOS_ITS ---
HPI - General General Date of Admission: 09/05/22 Date of Service: 09/05/22 Chief Complaint: Requesting services for opiate detox HPI Narrative BERYL PETTY, is a 27 F who presents to the emergency room at [facility] after taking an overdose of fentanyl unintentionally today, she stated she snorts fentanyl, she was found by her mother who called the squad and she was brought to the emergency room. EMS gave the patient Narcan, she was alert and oriented x3 in triage in the emergency room. Patient was here last week for opiate detox and completed a program and was following up with an outpatient detox program but today she relapsed and took a dose of fentanyl. Patient denies any use of alcohol, she does smoke marijuana. Labs obtained in the emergency room revealed an elevated white blood cell count of 14.9, chemistry profile was unremarkable, ethanol call level was less than 3. Patient is requesting services for opiate detox, she will be admitted to [place] [address], she will be seen by addiction health and social care teacher. [facility] Medical History Drug abuse, opioid type Allergy/AdvReac Type Severity Reaction Status Date / Time No Known Allergies Allergy Verified 09/05/22 16:06 Social History Smoking Status: Current every day smoker tobacco type: cigarettes ROS Constitutional Constitutional: Denies anorexia, change in weight, chills, fatigue, fever(s), malaise, night sweats or weakness Eyes Eyes: Denies blurry vision, change in vision, discharge from eye(s) or eye pain Cardiovascular Cardiovascular: Denies chest pain, claudication, dyspnea on exertion, edema, lightheadedness or palpitations Respiratory/Chest Respiratory/Chest: Denies cough, dyspnea, excessive phlegm production, hemoptysis, productive cough, shortness of breath at rest or shortness of breath with exertion Gastrointestinal Gastrointestinal: Denies abdominal pain, coffee ground emesis, constipation, diarrhea, dyspepsia, hematemesis, hematochezia, melena, nausea or vomiting Genitourinary Genitourinary: Denies dysuria, hematuria, urinary frequency, urinary hesitancy, urinary incontinence or urinary urgency Musculoskeletal Musculoskeletal: Denies back pain, joint pain, joint stiffness, joint swelling, myalgias or neck pain Neurologic Neurologic: Denies abnormal gait, abnormal speech, dizziness, focal weakness, headache(s), loss of vision, numbness, other visual disturbances, paresthesias, syncope or tingling Psychiatric Psychiatric: Denies anxiety, cognitive impairment, depression, irritability, mood swings or suicidal ideation Endocrine Endocrinology: Denies change in body appearance, cold intolerance, excessive sweating, heat intolerance, polydipsia or polyuria Hematologic/Lymphatic Hematologic/Lymphatic: Denies none, anemia, easy bleeding, easy bruising or lymphadenopathy Allergic/Immunologic Allergic/Immunologic: Denies rhinitis, urticaria, eczemia or asthma Vital Signs Vital Signs Vital Signs: 09/05/22 16:03 09/05/22 18:38 Temperature 96.3 F L Temperature Source Temporal Pulse Rate 94 51 L Respiratory Rate 18 14 Blood Pressure 97/77 116/63 Blood Pressure Mean 83 80 Pulse Ox 97 96 Oxygen Delivery Method Room Air Room Air Weight Weight: 74.843 kg Body Mass Index (BMI) 26.6 Physical Exam Const alert, oriented x3, no apparent distress, average body habitus and healthy appearing General Appearance: cooperative, well kempt and well developed Orientation / Consciousness: awake, oriented to person, oriented to place and oriented to time HEENT normocephalic, head/scalp atraumatic, hearing grossly normal bilaterally and moist oral mucous membranes Eyes PERRL, EOMs intact bilaterally and conjunctivae normal Neck supple, no JVD, thyroid normal and no carotid bruits General: trachea midline Resp normal respiratory effort, no retractions, no use of accessory muscles and clear to auscultation bilaterally Auscultation: Negative for rales, rhonchi or wheezes Cardio regular rate, regular rhythm, S1 normal heart sound, S2 normal heart sound, no murmurs, no rub and no gallops GI normal to inspection, nondistended, normoactive bowel sounds, soft to palpation, non-tender and non-distended Extremity no clubbing, cyanosis or edema Skin no rashes or lesions noted General Skin Exam: no breakdown Neuro oriented x3, CN's II-XII intact bilaterally, moves all extremities, no focal motor deficits and no sensory deficits noted Sensorium / Orientation: awake and alert Speech: speech normal Psych affect normal Results Lab / Micro Data Result Diagrams: 09/05/22 18:15 09/05/22 18:15 Labs: Laboratory Results - last 24 hr 09/05/22 18:15: WBC 14.9 H, RBC 4.64, Hgb 13.9, Hct 40.7, MCV 87.7, MCH 30.0, MCHC 34.2, RDW Std Deviation 39.8, RDW Coeff of Mynor 12.4, Plt Count 292, MPV 11.2, Immature Gran % (Auto) 0.400, Neut % (Auto) 83.1 H, Lymph % (Auto) 11.6 L, [place] % (Auto) 4.6, Eos % (Auto) 0.1, Baso % (Auto) 0.2, Absolute Neuts (auto) 12.4 H, Absolute Lymphs (auto) 1.73, Nucleated RBC % 0 09/05/22 18:15: Sodium 142, Potassium 4.0, Chloride 111 H, Carbon Dioxide 25.0, Anion Gap 6, BUN 9, Creatinine 0.92, Estim Creat Clear Calc 86.75, Est GFR (MDRD) Af Amer 95, Est GFR (MDRD) Non-Af 79, BUN/Creatinine Ratio 9.8 L, Glucose 109 H, Calcium 9.5 09/05/22 18:15: Ethyl Alcohol < 3.0 09/05/22 18:15: Serum , Qual NEGATIVE Assessment & Plan Assessment/Plan (1) Desire for detoxification: PLAN: Plan 1. Chronic opioid addiction-patient is desiring services for opiate detox at this time, she will be admitted to [facility] 3, orders were entered using the opiate detox order set, she will be seen by addiction health and social care teacher #2 acute overdose of eehwpora-[id number]-[id number] is shows no signs at the present time of altered mental status due to this #3 history of polysubstance abuse-complicates care, medical course, recovery, and prognosis Total clinical time spent by myself addressing the patient's medical issues, reviewing all of the data, and collaborating with patient's care team: 55-minute Charges/Coding Visit Charges Inpatient E&M: 80273 Init Hosp L2
[2022-09-05 20:38] VITALS: BMI 25.8
--- NOTE | 2022-09-05 21:13 | NURSING ---
Pt came up to floor very upset w this nurse that i would not allow her to have her pillow case and bible. I informed her no belongings mean no belongs and that she sign the contract. Pt said the drs said she was allowed it. Instructed her this is a [facility] policy not mds choice. PT said she was here 1 week ago and was allowed to have it. Instructed her again no. Pt said well i will only be here a day or2. Pt then allowed this nurse to lock her belongings. Pt kept saying this is bullshit. I said i am just following the rules. She stated agian she wont be here long. This nurse no longer continued to engage .
[2022-09-05 21:33] VITALS: PULSE 75; RESP 16; O2SAT 98
[2022-09-05 23:14] VITALS: BP 108/70; PULSE 78; RESP 18; TEMP 36.6; O2SAT 100
[2022-09-06 06:18] VITALS: BP 98/53; PULSE 63; RESP 18; TEMP 36.6; O2SAT 100
[2022-09-06 07:09] LABS: Amphetamine Urine VISTA NEGATIVE (<1000 ng/mL); Barbiturate Urine VISTA NEGATIVE (< 200 ng/mL); Benzodiazepine Urine VISTA NEGATIVE (< 200 ng/mL); Cocaine Urine VISTA NEGATIVE (< 300 ng/mL); Ecstacy Urine VISTA NEGATIVE (< 500 ng/mL); Methadone Urine VISTA NEGATIVE (< 300 ng/mL); PCP Urine VISTA NEGATIVE (< 25 ng/mL); THC Urine VISTA POSITIVE (< 50 ng/mL); Vista UDS pH Range 5
--- NOTE | 2022-09-06 09:06 | PCM.PN.HOSP ---
Objective Data Objective Data Vital Signs: Vital Signs Temp Pulse Resp BP Pulse Ox O2 Del Method 97.9 F 63 18 98/53 L 100 Room Air 09/06/22 06:18 09/06/22 06:18 09/06/22 06:18 09/06/22 06:18 09/06/22 06:18 09/06/22 06:18 Oxygen Delivery Method Room Air Weight: 72.575 kg Body Mass Index (BMI) 25.8 Intake & Output: Intake and Output for Last 24 Hours 09/04/22 09/05/22 09/06/22 23:59 23:59 23:59 Intake Total 600 / 600 Balance 600 / 600 Lab / Micro Data Result Diagrams: 09/05/22 18:15 09/05/22 18:15 Labs: Laboratory Results - last 24 hr 09/05/22 06:35: Urine Opiates Screen NEGATIVE, Urine Methadone Screen NEGATIVE, Ur Barbiturates Screen NEGATIVE, Ur Phencyclidine Scrn NEGATIVE, Ur Amphetamines Screen NEGATIVE, MDMA (Ecstasy) Screen NEGATIVE, U Benzodiazepines Scrn NEGATIVE, Urine Cocaine Screen NEGATIVE, U Cannabinoids Screen POSITIVE H, Ur Drug Screen Comment 09/05/22 18:15: WBC 14.9 H, RBC 4.64, Hgb 13.9, Hct 40.7, MCV 87.7, MCH 30.0, MCHC 34.2, RDW Std Deviation 39.8, RDW Coeff of Mynor 12.4, Plt Count 292, MPV 11.2, Immature Gran % (Auto) 0.400, Neut % (Auto) 83.1 H, Lymph % (Auto) 11.6 L, [place] % (Auto) 4.6, Eos % (Auto) 0.1, Baso % (Auto) 0.2, Absolute Neuts (auto) 12.4 H, Absolute Lymphs (auto) 1.73, Nucleated RBC % 0 09/05/22 18:15: Sodium 142, Potassium 4.0, Chloride 111 H, Carbon Dioxide 25.0, Anion Gap 6, BUN 9, Creatinine 0.92, Estim Creat Clear Calc 86.75, Est GFR (MDRD) Af Amer 95, Est GFR (MDRD) Non-Af 79, BUN/Creatinine Ratio 9.8 L, Glucose 109 H, Calcium 9.5 09/05/22 18:15: Ethyl Alcohol < 3.0 09/05/22 18:15: Serum , Qual NEGATIVE Assessment & Plan Assessment/Plan (1) Desire for detoxification: PLAN: Plan 1. Chronic opioid addiction -Recent admission for opioid detox and was discharged 08/29/2022 to follow-up for outpatient services -patient is desiring services for opiate detox at this time, she will be admitted to [facility] 3 -orders were entered using the opiate detox order set, she will be seen by addiction social media campaign manager #2 acute overdose of fentanyl -unintentional, received Narcan with EMS -patient is shows no signs at the present time of altered mental status due to this #3 history of polysubstance abuse -UDS positive for cannabis -complicates care, medical course, recovery, and prognosis #DVT ppx: Low risk, ambulatory Syeda Dia MD Time spent in the patient's overall evaluation,decision-making process, review of diagnostic data, adjustment of management, discussion with other providers, nursing nursing and ancillary staff involved in patient's care documentation, [] Minutes
[2022-09-06 09:09] VITALS: BP 113/75; PULSE 60; RESP 18; TEMP 36.6; O2SAT 100
--- NOTE | 2022-09-06 12:26 | PCM.DC ---
Discharge Instructions Diet Discharge Diet: No restrictions Activity Discharge Activity: Return to Normal Activity Follow Up Care Test Results: Test results from this visit will be discussed in further detail at your follow-up appointment, if applicable. Discharge Plan Admission Admit Date/Time: 09/05/22 19:42 Primary Reason for Your Visit: Fentanyl overdose Attending Provider: Syeda Dia Primary Care Provider: Care Physician,No Primary Consulting Providers: Epifanio Yang Instructions Patient Instructions: ED Opiate Abuse, ED Opioid Withdrawal Additional Instructions / Restrictions: -If you do not have a primary care physician of list of local primary care physicians can be provided for you upon discharge. Please ask for this list prior to discharge - It is strongly advised that you refrain from any substance use. [facility] at [address] [place] [phone] (ph [phone]) if you are interested in further resources -Please follow-up with [facility] for outpatient addiction services upon discharge -Please call your primary care provider's office upon discharge to schedule a hospital follow up within 1 week. -For any concerning signs or symptoms please call 911 or proceed to the nearest emergency department Discharge Orders/Prescriptions Prescriptions: No Action NK Referrals / Follow Up: Care Physician,No Primary [Primary Care Provider] - ( -If you do not have a primary care physician of list of local primary care physicians can be provided for you upon discharge. Please ask for this list prior to discharge) Disposition Disposition (needs filled in before D/C Order can be placed): Home, Self Care
--- NOTE | 2022-09-06 12:28 | DS.PCM_ITS ---
Providers Date of Admission: 09/05/22 Date of Discharge: 09/06/22 Primary Care Physician: No Primary Care Phys Reason For Visit: FENTANYL OVERDOSE Diagnosis Discharge Diagnosis (1) Accidental fentanyl overdose: Status: Acute Code(s): T40.411A - Poisoning by fentanyl or fentanyl analogs, accidental (unintentional), initial encounter (2) Polysubstance abuse: Status: Acute Code(s): F19.10 - Other psychoactive substance abuse, uncomplicated (3) Marijuana abuse: Status: Acute Code(s): F12.10 - Cannabis abuse, uncomplicated (4) Opioid use disorder: Status: Acute Code(s): F11.90 - Opioid use, unspecified, uncomplicated Medications at Discharge Home Medications NK 09/06/22 Hospital Course Summary of Care Provided Minutes Spent on Discharge: 32 Hospital Course: Patient is a 27-year-old female with history of opioid use disorder here recently for detox from opioids with discharge 08/29/2022 to follow-up with [facility]. She Re-presented 09/05 after an accidental fentanyl overdose. She snorts fentanyl and was found by her mother who called the squad and she was brought to the ED and was given Narcan. She was admitted overnight and initially reported she wanted opioid detox however given further discussion she had not used since discharge until the one-time relapse (though appears other providers may have got different timeline however she does not use daily) so does not necessitate a full detox and did not score on COWS protocol triggering Subutex, wants to [facility]up [facility], on day of discharge patient awake and alert, has no new physical complaints. Agreeable to discharge. And she did confirm that this was an accidental overdose was not intentional. Discussed this with 180 addiction coordinator, patient discharged with plan for outpatient follow-up in stable condition. Physical Exam Narrative General: Alert, oriented, no apparent distress HEENT: Atraumatic, normocephalic Eyes: Anicteric, normal conjunctiva, extraocular movements grossly intact Neck: Supple Respiratory: Clear to auscultation bilaterally, normal respiratory effort Cardiovascular: Regular rate and rhythm GI: Soft, nontender, nondistended Extremities: No edema Musculoskeletal: Moving all extremities Neuro: No overt focal neurological deficits Skin: No rashes appreciated Psych: Cooperative Weight / BMI Weight Weight: 72.575 kg Body Mass Index (BMI) 25.8 ABG / Lab / Microbiology Data Result Diagrams: 09/05/22 18:15 09/05/22 18:15 Laboratory: Laboratory Results - last 24 hr 09/05/22 06:35: Urine Opiates Screen NEGATIVE, Urine Methadone Screen NEGATIVE, Ur Barbiturates Screen NEGATIVE, Ur Phencyclidine Scrn NEGATIVE, Ur Amphetamines Screen NEGATIVE, MDMA (Ecstasy) Screen NEGATIVE, U Benzodiazepines Scrn NEGATIVE, Urine Cocaine Screen NEGATIVE, U Cannabinoids Screen POSITIVE H, Ur Drug Screen Comment 09/05/22 18:15: WBC 14.9 H, RBC 4.64, Hgb 13.9, Hct 40.7, MCV 87.7, MCH 30.0, MCHC 34.2, RDW Std Deviation 39.8, RDW Coeff of Mynor 12.4, Plt Count 292, MPV 11.2, Immature Gran % (Auto) 0.400, Neut % (Auto) 83.1 H, Lymph % (Auto) 11.6 L, Motley % (Auto) 4.6, Eos % (Auto) 0.1, Baso % (Auto) 0.2, Absolute Neuts (auto) 12.4 H, Absolute Lymphs (auto) 1.73, Nucleated RBC % 0 09/05/22 18:15: Sodium 142, Potassium 4.0, Chloride 111 H, Carbon Dioxide 25.0, Anion Gap 6, BUN 9, Creatinine 0.92, Estim Creat Clear Calc 86.75, Est GFR (MDRD) Af Amer 95, Est GFR (MDRD) Non-Af 79, BUN/Creatinine Ratio 9.8 L, Glucose 109 H, Calcium 9.5 09/05/22 18:15: Ethyl Alcohol < 3.0 09/05/22 18:15: Serum , Qual NEGATIVE D/C Instructions Discharge Diet: No restrictions Meaningful Use Info Meaningful Use Diagnoses (Choose all that apply): None applicable Discharge Plan Admission Admit Date/Time: 09/05/22 19:42 Primary Reason for Your Visit: Fentanyl overdose Attending Provider: Syeda Dia Primary Care Provider: Care Physician,No Primary Consulting Providers: Epifanio Yang Instructions Patient Instructions: ED Opiate Abuse, ED Opioid Withdrawal Additional Instructions / Restrictions: -If you do not have a primary care physician of list of local primary care physicians can be provided for you upon discharge. Please ask for this list prior to discharge - It is strongly advised that you refrain from any substance use. Please call [facility] located at [address] [place] [phone] (ph [phone]) if you are interested in further resources -Please follow-up with [facility] for outpatient addiction services upon discharge -Please call your primary care provider's office upon discharge to schedule a hospital follow up within 1 week. -For any concerning signs or symptoms please call 911 or proceed to the nearest emergency department Discharge Orders/Prescriptions Prescriptions: No Action NK Referrals / Follow Up: Care Physician,No Primary [Primary Care Provider] - ( -If you do not have a primary care physician of list of local primary care physicians can be provided for you upon discharge. Please ask for this list prior to discharge) Disposition Disposition (needs filled in before D/C Order can be placed): Home, Self Care Charges/Coding Visit Charges Inpatient E&M: [id number] Disch Hosp >30min
[2022-09-06 12:44] VITALS: BP 113/75; PULSE 54; RESP 16; TEMP 36.7; O2SAT 100
== END 2022-09-06 13:25 | disposition home or self-care (01) ==
LOC: ED 16:57 → MS3 09-06 06:54
PROVIDERS: Admitting Provider Internal Medicine; Emergency Provider Student in an Organized Health Care Education/Training Program; Visit Provider Internal Medicine
DX: T40.411A Poisoning by fentanyl or fentanyl analogs, accidental (unintentional), initial encounter (principal); F11.20 Opioid dependence, uncomplicated; F17.210 Nicotine dependence, cigarettes, uncomplicated; F12.10 Cannabis abuse, uncomplicated
CPT/HCPCS: 80048; 80307; 82077; 84703; 85025; 99221; 99285; G0378